=== PATIENT | female | born 1980 ===

== ENCOUNTER → 2023-04-11 10:32 | Outpatient (CLI) | payer OTHER, SELFPAY ==
--- NOTE | 2023-04-11 | DI.RAD.S_ITS ---
PROCEDURE: XR SACRUM COCCYX MIN 2V INDICATIONS: coccyxdynia, no trauma TECHNIQUE: 3 views of the sacrum and coccyx acquired. COMPARISON: [facility], CR, XR ABDOMEN 1 VIEW, 09/07/2021, 9:49. FINDINGS: Bones: No fractures or dislocations. No suspicious bony lesions. Mild degenerative changes at the pubic symphysis. SI joints appear symmetric. Soft tissues: Visualized bowel gas pattern is normal. No suspicious soft tissue densities. IMPRESSION: No significant bony abnormality of the sacrum or coccyx is identified. If clinically indicated consider MRI or CT for further evaluation. Dictated by: Tonio Gold M.D. on 04/11/2023 at 13:49 Approved by: Tonio Gold M.D. on 04/11/2023 at 13:51
== END ==
PROVIDERS: PCP Registered Nurse; Referring Provider Registered Nurse; Visit Provider Registered Nurse
DX: M53.3 Sacrococcygeal disorders, not elsewhere classified (principal)
CPT/HCPCS: 72220